=== PATIENT | male | born 1990 | race Two or more races ===

== ENCOUNTER 2023-10-23 14:35 | Emergency (ER) | payer BC ==
[~2023-10-23] VITALS: Ht 180.3 cm; Wt 96.3 kg
[2023-10-23] MEDS: IBUPROFEN 600 MG TAB PO ONE (14:56)
[2023-10-23 15:22] LABS: Basophils # (auto) 0 10 ^3/uL (0-0.2); Basophils % (auto) 0.5 % (0.0-2.0); Eosinophils # (auto) 0 10 ^3/uL (0-0.8); Hematocrit 46.4 % (41.0-53.0); Lymphocytes # (auto) 1.3 10 ^3/uL (0.4-5.4); Lymphocytes % (auto) 22.5 % (10.0-50.0); Mean Corpuscular Hemoglobin 30.6 pg (28.0-32.0); Mean Corpuscular Hgb Conc. 34.4 g/dL (32.0-36.0); Mean Corpuscular Volume 88.9 fL (80.0-100.0); Monocytes # (auto) 0.9 10 ^3/uL (0-1.3); Monocytes % (auto) 15.2 % (0.0-12.0); Neutrophils # (auto) 3.5 10 ^3/uL (1.6-8.6); Neutrophils % (auto) 61.8 % (37.0-80.0); Nucleated Red Blood Cells % 0.1 %; Red Blood Cells 5.23 10^6/uL (4.5-5.90); Red Cell Distribution Width 12.9 % (11.8-14.3); White Blood Cell 5.7 10^3/uL (4.4-10.8)
[2023-10-23 15:31] LABS: Chloride 97 mmol/L (98-107); Potassium 4.6 mmol/L (3.5-5.1); Sodium 131 mmol/L (136-145)
[2023-10-23 15:32] LABS: Anion Gap 8 (5-15); Carbon Dioxide 26 mmol/L (20-30)
[2023-10-23 15:33] LABS: Calcium 10.1 mg/dL (8.7-10.4)
[2023-10-23 15:38] LABS: BUN/Creatinine Ratio 9.1 (10.0-20.0); Blood Urea Nitrogen 11 mg/dL (9-23); Glucose 103 mg/dL (74-106)
[2023-10-23 16:01] LABS: Urine Bacteria None Seen /hpf (None Seen)
[2023-10-23 16:09] LABS: Urine Blood Negative /uL (Negative); Urine Clarity Clear (Clear); Urine Color Yellow (Yellow); Urine Mucus FEW (None Seen); Urine Protein, UAD 1+ (Negative); Urine Specific Gravity 1.029 (1.001-1.035); Urine Urobilinogen Normal (Negative); Urine WBC <1 /hpf (0 - 3); Urine pH 6.5 (5.0-9.0)
[2023-10-23] MEDS ORDERED: IBUP-1454 PO (17:17)
[2023-10-23] MEDS ORDERED: ACET500T58 PO (17:17)
[2023-10-23 17:45] VITALS: BP 120/78; PULSE 89; RESP 18; TEMP 98.9; O2SAT 98
== END 2023-10-23 17:48 | disposition home or self-care (01) ==
LOC: ER 14:35 → EDSEX 14:35 → ER 17:48
DX: B34.9 Viral infection, unspecified (principal)
CPT/HCPCS: 36415; 80048; 81001; 85025